=== PATIENT | male | born 1990 | race African-American/Black ===

== ENCOUNTER 2023-03-04 02:15 | Emergency (ER) | payer SELFPAY ==
[~2023-03-04] VITALS: Ht 172.7 cm; Wt 99.8 kg
[2023-03-04 02:22] VITALS: BP 100/76
--- NOTE | 2023-03-04 02:36 | NUR ---
Patient taken to bed 9.
--- NOTE | 2023-03-04 02:44 | NUR ---
patient refusing care decided to get out of the room and walked out of the room. attempted to console patient but refusing care. ER MD made aware.
--- NOTE | 2023-03-04 02:48 | NUR ---
Pt left without being seen by ERMD.
[2023-03-04 02:50] VITALS: BP 100/76
== END 2023-03-04 02:48 | disposition left against medical advice (07) ==
LOC: MED 02:15
DX: Z00.00 Encounter for general adult medical examination without abnormal findings (principal); T81.89XA Other complications of procedures, not elsewhere classified, initial encounter; Z53.21 Procedure and treatment not carried out due to patient leaving prior to being seen by health care provider
CPT/HCPCS: 99281